=== PATIENT | male | born 1980 | race Caucasian/White ===

== ENCOUNTER 2016-10-29 12:52 | Emergency (ER) | payer OTHER ==
[~2016-10-29] VITALS: Ht 182.9 cm; Wt 52.2 kg
[2016-10-29 13:08] VITALS: BP_SYST 148
[2016-10-29] MEDS ORDERED: SUMAtriptan SUCCINATE 6 MG/0.5 ML VIAL SUBCUT ONE (13:15)
[2016-10-29] MEDS ORDERED: DEXAMETHASONE SOD PHOSPHATE 10 MG/ML VIAL IVP ONE (13:15)
[2016-10-29] MEDS ORDERED: NS 500 ML IV ONE (13:15)
[2016-10-29] MEDS ORDERED: MORPHINE 4 MG/ML INJ. SYRINGE IVP ONE (13:15)
[2016-10-29] MEDS ORDERED: KETOROLAC TROMETHAMINE 30 MG VIAL IVP ONE (13:15)
[2016-10-29] MEDS ORDERED: DIPHENHYDRAMINE INJ 50 MG/ML VIAL IVP ONE (13:15)
[2016-10-29] MEDS ORDERED: ONDANSETRON HCL 4 MG/2 ML VIAL IVP ONE (13:30)
[2016-10-29 14:22] VITALS: BP_SYST 150
== END 2016-10-29 14:21 | disposition home or self-care (01) ==
LOC: SED 12:52
DX: G43.909 Migraine, unspecified, not intractable, without status migrainosus (principal); Z88.8 Allergy status to other drugs, medicaments and biological substances
CPT/HCPCS: 96361; 96374; 96375; 99284; J1100; J1200; J1885; J2270; J2405; J7040; J3030

== ENCOUNTER 2017-02-25 07:16 | Emergency (ER) | payer OTHER, MEDICAID ==
[~2017-02-25] VITALS: Ht 182.9 cm; Wt 52.2 kg
[2017-02-25 07:23] VITALS: BP_SYST 152
[2017-02-25] MEDS ORDERED: ONDANSETRON 4 MG ODT TAB PO ONE (07:45)
[2017-02-25] MEDS ORDERED: MORPHINE SULFATE 10 MG/ML VIAL IM ONE (07:45)
[2017-02-25 09:23] VITALS: BP_SYST 144
== END 2017-02-25 09:21 | disposition home or self-care (01) ==
LOC: SED 07:16
DX: G43.909 Migraine, unspecified, not intractable, without status migrainosus (principal); J45.909 Unspecified asthma, uncomplicated; I10 Essential (primary) hypertension; Z88.8 Allergy status to other drugs, medicaments and biological substances
CPT/HCPCS: 96372; 99283; J2270; Q0162

== ENCOUNTER 2017-03-01 05:20 | Emergency (ER) | payer OTHER, MEDICAID ==
[~2017-03-01] VITALS: Ht 182.9 cm; Wt 52.2 kg
[2017-03-01 05:20] VITALS: BP_SYST 152
[2017-03-01] MEDS ORDERED: WARF6TAB20 PO (05:42)
[2017-03-01] MEDS ORDERED: MORPHINE 4 MG/ML INJ. SYRINGE IVP ONE (05:45)
[2017-03-01] MEDS ORDERED: DIPHENHYDRAMINE INJ 50 MG/ML VIAL IVP ONE (05:45)
[2017-03-01] MEDS ORDERED: ONDANSETRON HCL 4 MG/2 ML VIAL IVP ONE (05:45)
[2017-03-01] MEDS ORDERED: NACL 0.9% 1,000 ML IV ONE (05:45)
[2017-03-01 06:21] LABS: BASOPHILS % (AUTO) 0.3 % (0.0-2.0); EOSINOPHILS % (AUTO) 0.5 % (0.0-4.0); HEMATOCRIT 44.3 % (36-54); HEMOGLOBIN 14.6 g/dL (14.0-18.0); LYMPHOCYTES # (AUTO) 0.8 K/uL (1.0-5.5); LYMPHOCYTES % (AUTO) 10.3 % (20.5-51.5); MEAN CORPUSCULAR HEMOGLOBIN 31 pg (27-31); MEAN CORPUSCULAR HGB CONC 33 % (32-36); MEAN CORPUSCULAR VOLUME 95 fL (79.0-98.0); MONOCYTES # (AUTO) 0.6 K/uL (0.0-1.0); MONOCYTES % (AUTO) 7.1 % (1.7-9.3); NEUTROPHILS # (AUTO) 6.7 K/uL (1.8-7.7); NEUTROPHILS % (AUTO) 81.8 % (40.0-70.0); PLATELET COUNT (AUTO) 223 K/uL (130-430); RED BLOOD CELL COUNT(AUTO) 4.64 MIL/uL (4.2-6.2); RED CELL DISTRIBUTION WIDTH 13.6 % (9.0-15.0); WHITE BLOOD COUNT (AUTO) 8.1 K/uL (4.8-10.8)
[2017-03-01 06:31] LABS: CALCIUM 9.6 mg/dL (8.4-11.0); CREATININE 0.73 mg/dL (0.55-1.30); INR 2.9 (0.80-1.20); POTASSIUM 3.7 mmol/L (3.5-5.1); PROTHROMBIN TIME 29.7 SECS (9.5-12.5)
[2017-03-01 06:36] LABS: ALBUMIN 3.9 g/dL (3.4-4.8); TOTAL BILIRUBIN 0.9 mg/dL (0.0-1.0)
[2017-03-01 07:02] VITALS: BP_SYST 134
== END 2017-03-01 07:02 | disposition home or self-care (01) ==
LOC: SED 05:20
DX: G43.909 Migraine, unspecified, not intractable, without status migrainosus (principal); I10 Essential (primary) hypertension; J45.909 Unspecified asthma, uncomplicated; Z88.8 Allergy status to other drugs, medicaments and biological substances
CPT/HCPCS: 36415; 80053; 85025; 85610; 85730; 96361; 96374; 96375; 99284; J1200; J2270; J2405; J7030

== ENCOUNTER 2017-03-20 19:19 | Inpatient (IN) | payer OTHER, MEDICAID ==
[~2017-03-20] VITALS: Ht 182.9 cm; Wt 51.7 kg
[~2017-03-20 19:19] MED LIST: WARF6TAB20 PO
[2017-03-20 19:26] VITALS: BP_SYST 132
[2017-03-20] MEDS ORDERED: ASPIRIN 325 MG TABLET PO ONE (19:45)
[2017-03-20] MEDS ORDERED: HYDROmorphone 1 MG INJ. 1 MG/ML AMPUL IVP ONE ×2 (19:45→21:15)
[2017-03-20] MEDS ORDERED: DIPHENHYDRAMINE INJ 50 MG/ML VIAL IVP ONE (19:45)
[2017-03-20 19:53] LABS: BASOPHILS % (AUTO) 0.7 % (0.0-2.0); EOSINOPHILS # (AUTO) 0.1 K/uL (0.0-0.4); EOSINOPHILS % (AUTO) 1.7 % (0.0-4.0); HEMATOCRIT 40.1 % (36-54); HEMOGLOBIN 13.4 g/dL (14.0-18.0); LYMPHOCYTES # (AUTO) 1.4 K/uL (1.0-5.5); LYMPHOCYTES % (AUTO) 19.8 % (20.5-51.5); MEAN CORPUSCULAR HEMOGLOBIN 32 pg (27-31); MEAN CORPUSCULAR HGB CONC 33 % (32-36); MEAN CORPUSCULAR VOLUME 95 fL (79.0-98.0); MONOCYTES # (AUTO) 0.8 K/uL (0.0-1.0); NEUTROPHILS # (AUTO) 4.7 K/uL (1.8-7.7); NEUTROPHILS % (AUTO) 65.8 % (40.0-70.0); PLATELET COUNT (AUTO) 179 K/uL (130-430); RED BLOOD CELL COUNT(AUTO) 4.21 MIL/uL (4.2-6.2); RED CELL DISTRIBUTION WIDTH 13.7 % (9.0-15.0)
[2017-03-20] MEDS ORDERED: ONDANSETRON 4 MG ODT TAB PO ONE (20:00)
[2017-03-20 20:06] LABS: CALCIUM 8.4 mg/dL (8.4-11.0); CREATININE 0.77 mg/dL (0.55-1.30); POTASSIUM 3.6 mmol/L (3.5-5.1)
[2017-03-20 20:11] LABS: ALBUMIN 3.7 g/dL (3.4-4.8); TOTAL BILIRUBIN 0.5 mg/dL (0.0-1.0)
[2017-03-20 20:25] LABS: PROTHROMBIN TIME 40.5 SECS (9.5-12.5)
[2017-03-20 20:26] LABS: INR 3.9 (0.80-1.20)
[2017-03-20 20:35] LABS: BILIRUBIN,URINE NEGATIVE (NEGATIVE); BLOOD, URINE NEGATIVE (NEGATIVE); CLARITY/URINE HAZY (CLEAR); COLOR,URINE YELLOW (YELLOW); GLUCOSE,URINE NEGATIVE (NEGATIVE); KETONES,URINE NEGATIVE (NEGATIVE); LEUKOCYTE ESTERASE ,URINE NEGATIVE (NEGATIVE); NITRITE, URINE NEGATIVE (NEGATIVE); PROTEIN URINE NEGATIVE (NEGATIVE)
[2017-03-20 20:42] LABS: BACTERIA,URINE None Seen /HPF (None Seen); RBC,URINE 0-3 /HPF (0-3); URINE AMORPHOUS PHOSPHATES 4+ /HPF (None Seen); WBC,URINE NONE SEEN /HPF (0-3)
[2017-03-20] MEDS ORDERED: DORZ10DR10 OP (20:52)
[2017-03-20] MEDS ORDERED: LABE200T28 PO (20:52)
[2017-03-20 21:01] LABS: BARBITURATE, URINE NEGATIVE (NEG <=200); BENZODIAZEPINE, URINE NEGATIVE (NEG <=150); CANNABINOID, URINE POSITIVE (NEG <=50); COCAINE, URINE NEGATIVE (NEG <=150); METHAMPHETAMINES SCREEN,URINE NEGATIVE (NEG <=500); OPIATE, URINE NEGATIVE (NEG <=100); PHENCYCLIDINE SCREEN,URINE NEGATIVE (NEG <=25); UR TRICYCLIC ANTIDEPRESSANTS NEGATIVE (NEG <=300); URINE AMPHETAMINE NEGATIVE (NEG <=500); URINE METHADONE NEGATIVE (NEG <=200); URINE OXYCODONE SCREEN NEGATIVE (NEG <=100); URINE PROPOXYPHENE SCREEN NEGATIVE (NEG <=300)
[2017-03-20 21:52] VITALS: BP_SYST 148
[2017-03-20] MEDS ORDERED: LORazepam 2 MG/ML VIAL IVP PRN (22:15)
[2017-03-20] MEDS ORDERED: DOCUSATE SODIUM 100 MG CAPSULE PO PRN (22:15)
[2017-03-20] MEDS ORDERED: ONDANSETRON HCL 4 MG/2 ML VIAL IVP PRN (22:15)
[2017-03-20] MEDS ORDERED: MUPIROCIN 2% TOPICAL OINTMENT 22 GM NS PRN (22:15)
[2017-03-20] MEDS ORDERED: ZOLPIDEM TARTRATE 5 MG TABLET PO PRN (22:15)
[2017-03-20] MEDS ORDERED: POTASSIUM CHLORIDE 20 MEQ TAB.PRT.SR PO PRN (22:15)
[2017-03-20] MEDS ORDERED: MAGNESIUM SULFATE 50 ML IV PRN (22:15)
[2017-03-20] MEDS ORDERED: MORPHINE 2 MG/ML INJ. SYRINGE IVP PRN ×2 (22:15)
[2017-03-20] MEDS ORDERED: ACETAMINOPHEN 325 MG TABLET PO PRN (22:15)
[2017-03-21] VITALS (7 sets, daily range): BP systolic 103–154
[2017-03-21] MEDS: HYDROmorphone 2 MG/ML VIAL IVP PRN ×2 (02:35→08:32)
[2017-03-21 06:35] LABS: BASOPHILS % (AUTO) 0.5 % (0.0-2.0); EOSINOPHILS # (AUTO) 0.1 K/uL (0.0-0.4); EOSINOPHILS % (AUTO) 0.9 % (0.0-4.0); HEMATOCRIT 41.1 % (36-54); HEMOGLOBIN 13.6 g/dL (14.0-18.0); LYMPHOCYTES # (AUTO) 0.9 K/uL (1.0-5.5); MEAN CORPUSCULAR HEMOGLOBIN 32 pg (27-31); MEAN CORPUSCULAR HGB CONC 33 % (32-36); MEAN CORPUSCULAR VOLUME 96 fL (79.0-98.0); MONOCYTES # (AUTO) 0.5 K/uL (0.0-1.0); NEUTROPHILS # (AUTO) 6.3 K/uL (1.8-7.7); NEUTROPHILS % (AUTO) 79.6 % (40.0-70.0); PLATELET COUNT (AUTO) 181 K/uL (130-430); RED BLOOD CELL COUNT(AUTO) 4.28 MIL/uL (4.2-6.2); RED CELL DISTRIBUTION WIDTH 14.1 % (9.0-15.0); WHITE BLOOD COUNT (AUTO) 7.8 K/uL (4.8-10.8)
[2017-03-21 08:25] LABS: CALCIUM 9.2 mg/dL (8.4-11.0); CREATININE 0.6 mg/dL (0.55-1.30); POTASSIUM 3.7 mmol/L (3.5-5.1)
[2017-03-21 08:56] LABS: INR 3.5 (0.80-1.20)
[2017-03-21 08:59] LABS: PROTHROMBIN TIME 35.9 SECS (9.5-12.5)
[2017-03-21] MEDS ORDERED: LABETALOL HCL 100 MG TABLET PO SCH ×2 (09:00→15:00)
[2017-03-21] MEDS ORDERED: DORZOLAMIDE HCL/TIMOLOL MAL. 10 ML EYE DROPS (COSOPT) OP SCH (09:00)
[2017-03-21] MEDS ORDERED: HYDROmorphone 2 MG/ML VIAL IVP PRN (09:30)
[2017-03-21] MEDS ORDERED: IOHEXOL 350 mgI/mL, 150 ML INFUS..BTL IV ONE (10:59)
[2017-03-21] MEDS ORDERED: niCARdipine 25 MG in D5W 240 ML IV PRN (12:45)
[2017-03-21] MEDS ORDERED: WARFARIN SODIUM 5 MG TABLET PO SCH (18:00)
== END 2017-03-21 15:03 | disposition short-term general hospital (02) | DRG 300 ==
LOC: SED 19:19 → STU 21:13 → SIC 03-21 13:20
PROVIDERS: ADMIT General Practice; ATTEND General Practice
DX: I71.2 Thoracic aortic aneurysm, without rupture (principal); F11.20 Opioid dependence, uncomplicated; Q87.40 Marfan syndrome, unspecified; G44.89 Other headache syndrome; I71.01 Dissection of thoracic aorta; T45.511A Poisoning by anticoagulants, accidental (unintentional), initial encounter; F12.20 Cannabis dependence, uncomplicated; I10 Essential (primary) hypertension; Z53.20 Procedure and treatment not carried out because of patient's decision for unspecified reasons; Z86.79 Personal history of other diseases of the circulatory system; Z95.0 Presence of cardiac pacemaker; Z95.2 Presence of prosthetic heart valve; Z88.8 Allergy status to other drugs, medicaments and biological substances; Z79.01 Long term (current) use of anticoagulants; Z79.899 Other long term (current) drug therapy; Y92.89 Other specified places as the place of occurrence of the external cause
CPT/HCPCS: 36415; 71250-TC; 71275; 74175; 80048; 80053; 80307; 81000-TC; 82550-TC; 83735-TC; 83880; 84484; 85025; 85610-TC; 85730-TC; 93005; 96374; 96375; 99285; J1170; J1200; J2270; J2405; J7060; Q0162; Q9967

== ENCOUNTER 2017-06-03 19:19 | Emergency (ER) | payer OTHER, MEDICAID ==
[~2017-06-03] VITALS: Ht 182.9 cm; Wt 47.6 kg
[~2017-06-03 19:19] MED LIST changes: +DORZ10DR10 OP; +LABE200T28 PO
[2017-06-03 19:20] VITALS: BP_SYST 107
--- NOTE | 2017-06-03 20:20 | NUR ---
Pt to ER bed 7 for evaluation.
--- NOTE | 2017-06-03 20:30 | NUR ---
Pt alert and oriented x4. Pt C/O of chronic migraine. Pain stated 02/13. Sensitivity to light, nausea with no vomiting. No signs of SOB or acute distress noted. Will continue to monitor.
--- NOTE | 2017-06-03 20:35 | NUR ---
ER MD HAYS AT BEDSIDE EXAMINING PATIENT.
[2017-06-03] MEDS: ONDANSETRON 4 MG ODT TAB PO ONE (20:41)
[2017-06-03] MEDS: fentaNYL CITRATE/PF 100 MCG/2 ML AMP IM ONE (20:42)
[2017-06-03] MEDS ORDERED: fentaNYL CITRATE/PF 100 MCG/2 ML AMP IVP ONE (21:00)
[2017-06-03] MEDS: DIPHENHYDRAMINE INJ 50 MG/ML VIAL IVP ONE ×2 (21:37→22:29)
[2017-06-03] MEDS: NACL 0.9% 1,000 ML IV ONE (21:38)
[2017-06-03] MEDS: MORPHINE 2 MG/ML INJ. SYRINGE IVP ONE (21:45)
[2017-06-03] MEDS ORDERED: MORPHINE 2 MG/ML INJ. SYRINGE ONE (22:20)
[2017-06-03] MEDS: MORPHINE 4 MG/ML INJ. SYRINGE IVP ONE (22:20)
[2017-06-03 22:45] VITALS: BP_SYST 107
--- NOTE | 2017-06-03 22:45 | NUR ---
Patient given written and verbal discharge instructions and verbalizes understanding. ER MD HAYS discussed with patient the results and treatment provided. Patient in stable condition. ID arm band removed. IV catheter removed intact and dressing applied, no active bleeding. Rx of morphine, zofran and benadryl given. Patient educated on pain management and to follow up with PMD. Pain Scale 2/10. Opportunity for questions provided and answered.
== END 2017-06-03 22:45 | disposition home or self-care (01) ==
LOC: SED 19:19
DX: G43.909 Migraine, unspecified, not intractable, without status migrainosus (principal); J45.909 Unspecified asthma, uncomplicated; I10 Essential (primary) hypertension; Z88.8 Allergy status to other drugs, medicaments and biological substances
CPT/HCPCS: 93005; 96361; 96372; 96374; 96375; 96376; 99284; J1200; J2270; J3010; J7030; Q0162

== ENCOUNTER 2017-10-11 05:47 | Emergency (ER) | payer OTHER, MEDICAID ==
[~2017-10-11] VITALS: Ht 177.8 cm; Wt 52.2 kg
[2017-10-11 06:18] VITALS: BP_SYST 138
[2017-10-11] MEDS ORDERED: SUMAtriptan SUCCINATE 6 MG/0.5 ML VIAL SUBCUT ONE (06:30)
[2017-10-11] MEDS ORDERED: DIPHENHYDRAMINE INJ 50 MG/ML VIAL IM ONE (06:30)
[2017-10-11] MEDS ORDERED: ONDANSETRON 4 MG ODT TAB PO ONE (06:30)
[2017-10-11] MEDS ORDERED: MORPHINE 4 MG/ML INJ. SYRINGE IM ONE (07:15)
[2017-10-11] MEDS ORDERED: ONDANSETRON HCL 4 MG/2 ML VIAL IM ONE (07:15)
[2017-10-11 07:27] VITALS: BP_SYST 130
== END 2017-10-11 07:27 | disposition home or self-care (01) ==
LOC: SED 05:47
DX: G43.909 Migraine, unspecified, not intractable, without status migrainosus (principal); J45.909 Unspecified asthma, uncomplicated; I10 Essential (primary) hypertension; Z86.79 Personal history of other diseases of the circulatory system; Z88.8 Allergy status to other drugs, medicaments and biological substances; Z79.899 Other long term (current) drug therapy
CPT/HCPCS: 96372; 99284; J1200; J2270; Q0162; J2405; J3030

== ENCOUNTER 2017-10-12 10:15 | Emergency (ER) | payer OTHER, MEDICAID ==
[~2017-10-12] VITALS: Ht 182.9 cm; Wt 68.0 kg
[2017-10-12 10:23] VITALS: BP_SYST 129
[2017-10-12] MEDS ORDERED: DIPHENHYDRAMINE INJ 50 MG/ML VIAL IVP ONE (11:45)
[2017-10-12] MEDS ORDERED: ONDANSETRON HCL 4 MG/2 ML VIAL IVP ONE (11:45)
[2017-10-12] MEDS ORDERED: MORPHINE 4 MG/ML INJ. SYRINGE IVP ONE (11:45)
[2017-10-12] MEDS ORDERED: NS 500 ML IV ONE (11:45)
[2017-10-12] MEDS ORDERED: ACETAMINOPHEN/CODEINE 300 MG-30 MG TABLET PO ONE (13:00)
== END 2017-10-12 13:25 | disposition left against medical advice (07) ==
LOC: SED 10:15
DX: G43.909 Migraine, unspecified, not intractable, without status migrainosus (principal); J45.909 Unspecified asthma, uncomplicated; I10 Essential (primary) hypertension; Z86.79 Personal history of other diseases of the circulatory system; Z88.8 Allergy status to other drugs, medicaments and biological substances; Z79.899 Other long term (current) drug therapy
CPT/HCPCS: 96361; 96374; 96375; 99284; J1200; J2270; J2405; J7040

== ENCOUNTER 2017-10-18 06:01 | Emergency (ER) | payer OTHER, MEDICAID ==
[~2017-10-18] VITALS: Ht 177.8 cm; Wt 54.4 kg
[2017-10-18 06:05] VITALS: BP_SYST 124
[2017-10-18] MEDS ORDERED: DIPHENHYDRAMINE INJ 50 MG/ML VIAL IVP ONE (06:15)
[2017-10-18] MEDS ORDERED: NACL 0.9% 1,000 ML IV ONE (06:15)
[2017-10-18] MEDS ORDERED: MORPHINE 4 MG/ML INJ. SYRINGE IVP ONE ×2 (06:15→07:30)
[2017-10-18] MEDS ORDERED: ONDANSETRON HCL 4 MG/2 ML VIAL IVP ONE (06:30)
[2017-10-18 08:45] VITALS: BP_SYST 118
== END 2017-10-18 08:47 | disposition home or self-care (01) ==
LOC: SED 06:01
DX: G43.909 Migraine, unspecified, not intractable, without status migrainosus (principal); J45.909 Unspecified asthma, uncomplicated; I10 Essential (primary) hypertension; Z86.79 Personal history of other diseases of the circulatory system; Z88.8 Allergy status to other drugs, medicaments and biological substances; Z79.899 Other long term (current) drug therapy
CPT/HCPCS: 96361; 96374; 96375; 96376; 99284; J1200; J2270; J2405; J7030

== ENCOUNTER 2017-10-19 06:29 | Emergency (ER) | payer OTHER, MEDICAID ==
[~2017-10-19] VITALS: Ht 182.9 cm; Wt 52.2 kg
[2017-10-19 06:38] VITALS: BP_SYST 128
[2017-10-19] MEDS ORDERED: ONDANSETRON 4 MG ODT TAB PO ONE (07:00)
[2017-10-19] MEDS ORDERED: MORPHINE 4 MG/ML INJ. SYRINGE IM ONE (07:00)
[2017-10-19] MEDS ORDERED: DIPHENHYDRAMINE INJ 50 MG/ML VIAL IM ONE (07:00)
[2017-10-19 07:58] VITALS: BP_SYST 142
== END 2017-10-19 07:58 | disposition home or self-care (01) ==
LOC: SED 06:29
DX: G43.909 Migraine, unspecified, not intractable, without status migrainosus (principal); I10 Essential (primary) hypertension; J45.909 Unspecified asthma, uncomplicated; Z79.899 Other long term (current) drug therapy; Z88.8 Allergy status to other drugs, medicaments and biological substances
CPT/HCPCS: 96372; 99284; J1200; J2270; Q0162

== ENCOUNTER 2017-11-13 22:34 | Emergency (ER) | payer OTHER, MEDICAID ==
[2017-11-13 22:45] VITALS: BP_SYST 120
[2017-11-13] MEDS ORDERED: NACL 0.9% 1,000 ML IV ONE (23:22)
[2017-11-13] MEDS ORDERED: MORPHINE 4 MG/ML INJ. SYRINGE IVP ONE (23:30)
[2017-11-13] MEDS ORDERED: ONDANSETRON HCL 4 MG/2 ML VIAL IVP ONE (23:30)
[2017-11-14 00:12] LABS: BASOPHILS % (AUTO) 0.6 % (0.0-2.0); EOSINOPHILS # (AUTO) 0.1 K/uL (0.0-0.4); EOSINOPHILS % (AUTO) 1.5 % (0.0-4.0); HEMOGLOBIN 13.3 g/dL (14.0-18.0); LYMPHOCYTES # (AUTO) 1.6 K/uL (1.0-5.5); LYMPHOCYTES % (AUTO) 20.3 % (20.5-51.5); MEAN CORPUSCULAR HEMOGLOBIN 27 pg (27-31); MEAN CORPUSCULAR HGB CONC 33 % (32-36); MEAN CORPUSCULAR VOLUME 84 fL (79.0-98.0); MONOCYTES # (AUTO) 0.8 K/uL (0.0-1.0); MONOCYTES % (AUTO) 10.7 % (1.7-9.3); NEUTROPHILS # (AUTO) 5.4 K/uL (1.8-7.7); NEUTROPHILS % (AUTO) 66.9 % (40.0-70.0); PLATELET COUNT (AUTO) 180 K/uL (130-430); RED BLOOD CELL COUNT(AUTO) 4.87 MIL/uL (4.2-6.2); RED CELL DISTRIBUTION WIDTH 16.6 % (9.0-15.0); WHITE BLOOD COUNT (AUTO) 7.9 K/uL (4.8-10.8)
[2017-11-14 00:20] LABS: CALCIUM 9.4 mg/dL (8.4-11.0); CREATININE 0.63 mg/dL (0.55-1.30); POTASSIUM 3.9 mmol/L (3.5-5.1)
[2017-11-14 00:26] LABS: ALBUMIN 3.7 g/dL (3.4-4.8); PROTHROMBIN TIME 20.1 SECS (9.5-12.5); TOTAL BILIRUBIN 0.5 mg/dL (0.0-1.0)
[2017-11-14] MEDS ORDERED: DIPHENHYDRAMINE INJ 50 MG/ML VIAL IVP ONE ×2 (01:00→02:00)
[2017-11-14] MEDS ORDERED: MORPHINE 4 MG/ML INJ. SYRINGE IVP ONE (02:00)
[2017-11-14 03:03] VITALS: BP_SYST 120
== END 2017-11-14 03:03 | disposition home or self-care (01) ==
LOC: SED 22:34
DX: G43.909 Migraine, unspecified, not intractable, without status migrainosus (principal); G89.29 Other chronic pain; J45.909 Unspecified asthma, uncomplicated; I10 Essential (primary) hypertension; Z88.8 Allergy status to other drugs, medicaments and biological substances; Z79.899 Other long term (current) drug therapy
CPT/HCPCS: 36415; 71045; 80053; 82150; 82550; 83690; 85025; 85610; 85730; 96374; 96375; 96376; 99285; J1200; J2270; J2405; J7030

== ENCOUNTER 2017-11-15 01:56 | Emergency (ER) | payer OTHER, MEDICAID ==
[~2017-11-15] VITALS: Ht 182.9 cm; Wt 52.2 kg
[2017-11-15 02:02] VITALS: BP_SYST 126
[2017-11-15] MEDS ORDERED: KETOROLAC TROMETHAMINE 30 MG VIAL IVP ONE (02:30)
[2017-11-15] MEDS ORDERED: ONDANSETRON HCL 4 MG/2 ML VIAL IVP ONE (02:30)
[2017-11-15] MEDS ORDERED: MORPHINE 4 MG/ML INJ. SYRINGE IVP ONE (02:45)
[2017-11-15 03:02] LABS: BASOPHILS % (AUTO) 0.4 % (0.0-2.0); EOSINOPHILS # (AUTO) 0.1 K/uL (0.0-0.4); EOSINOPHILS % (AUTO) 1.7 % (0.0-4.0); HEMATOCRIT 38.7 % (36-54); HEMOGLOBIN 12.4 g/dL (14.0-18.0); LYMPHOCYTES # (AUTO) 1.3 K/uL (1.0-5.5); LYMPHOCYTES % (AUTO) 15.2 % (20.5-51.5); MEAN CORPUSCULAR HEMOGLOBIN 27 pg (27-31); MEAN CORPUSCULAR HGB CONC 32 % (32-36); MEAN CORPUSCULAR VOLUME 84 fL (79.0-98.0); MONOCYTES # (AUTO) 0.7 K/uL (0.0-1.0); MONOCYTES % (AUTO) 8.3 % (1.7-9.3); NEUTROPHILS # (AUTO) 6.4 K/uL (1.8-7.7); NEUTROPHILS % (AUTO) 74.4 % (40.0-70.0); PLATELET COUNT (AUTO) 174 K/uL (130-430); RED CELL DISTRIBUTION WIDTH 17.5 % (9.0-15.0); WHITE BLOOD COUNT (AUTO) 8.5 K/uL (4.8-10.8)
[2017-11-15 03:06] LABS: CALCIUM 8.9 mg/dL (8.4-11.0); CREATININE 0.71 mg/dL (0.55-1.30)
[2017-11-15 03:11] LABS: INR 2.4 (0.80-1.20)
[2017-11-15 03:12] LABS: ALBUMIN 2.8 g/dL (3.4-4.8); TOTAL BILIRUBIN 0.5 mg/dL (0.0-1.0)
[2017-11-15 03:16] LABS: PROTHROMBIN TIME 24.9 SECS (9.5-12.5)
[2017-11-15 04:23] VITALS: BP_SYST 132
[2017-11-15 04:51] LABS: BILIRUBIN,URINE NEGATIVE (NEGATIVE); BLOOD, URINE NEGATIVE (NEGATIVE); CLARITY/URINE CLEAR (CLEAR); COLOR,URINE YELLOW (YELLOW); GLUCOSE,URINE NEGATIVE (NEGATIVE); KETONES,URINE NEGATIVE (NEGATIVE); LEUKOCYTE ESTERASE ,URINE NEGATIVE (NEGATIVE); NITRITE, URINE NEGATIVE (NEGATIVE); PROTEIN URINE NEGATIVE (NEGATIVE); UROBILINOGEN,URINE 0.2 (0.2-1.0)
== END 2017-11-15 04:23 | disposition home or self-care (01) ==
LOC: SED 01:56
DX: G44.229 Chronic tension-type headache, not intractable (principal); J45.909 Unspecified asthma, uncomplicated; I10 Essential (primary) hypertension; Z88.8 Allergy status to other drugs, medicaments and biological substances; Z79.899 Other long term (current) drug therapy
CPT/HCPCS: 36415; 70450; 80053; 81003; 85025; 85610; 85730; 96374; 96375; 99284; J1200; J1885; J2270; J2405; J7040; 96376

== ENCOUNTER 2017-11-15 08:16 | Emergency (ER) | payer OTHER, MEDICAID ==
[~2017-11-15] VITALS: Ht 182.9 cm; Wt 52.2 kg
[2017-11-15 08:28] VITALS: BP_SYST 158
[2017-11-15] MEDS ORDERED: ONDANSETRON HCL 4 MG/2 ML VIAL IVP ONE ×2 (08:30→10:00)
[2017-11-15] MEDS ORDERED: MORPHINE 4 MG/ML INJ. SYRINGE IVP ONE ×3 (08:30→11:15)
[2017-11-15] MEDS ORDERED: NS 500 ML IV ONE (08:30)
[2017-11-15] MEDS ORDERED: DIPHENHYDRAMINE INJ 50 MG/ML VIAL IVP ONE (08:30)
[2017-11-15] MEDS ORDERED: KETOROLAC TROMETHAMINE 15 MG VIAL IVP ONE (10:00)
[2017-11-15 11:20] VITALS: BP_SYST 115
== END 2017-11-15 11:20 | disposition home or self-care (01) ==
LOC: SED 08:16
DX: G43.909 Migraine, unspecified, not intractable, without status migrainosus (principal); J45.909 Unspecified asthma, uncomplicated; I10 Essential (primary) hypertension; Z88.8 Allergy status to other drugs, medicaments and biological substances; Z79.899 Other long term (current) drug therapy
CPT/HCPCS: 70450; 96374; 96375; 96376; 99284; J1200; J1885; J2270; J2405

== ENCOUNTER 2017-11-16 17:55 | Emergency (ER) | payer OTHER, MEDICAID ==
[~2017-11-16] VITALS: Ht 182.9 cm; Wt 52.2 kg
[2017-11-16 17:55] VITALS: BP_SYST 119
[2017-11-16] MEDS ORDERED: DIPHENHYDRAMINE INJ 50 MG/ML VIAL IVP ONE (18:15)
[2017-11-16] MEDS ORDERED: MORPHINE 4 MG/ML INJ. SYRINGE IVP ONE (18:15)
[2017-11-16] MEDS ORDERED: ONDANSETRON HCL 4 MG/2 ML VIAL IVP ONE (18:15)
[2017-11-16] MEDS ORDERED: NACL 0.9% 1,000 ML IV ONE (18:15)
[2017-11-16] MEDS ORDERED: fentaNYL CITRATE/PF 100 MCG/2 ML AMP IVP ONE (19:00)
[2017-11-16] MEDS ORDERED: MORPHINE 2 MG/ML INJ. SYRINGE IVP ONE (20:30)
[2017-11-16 20:40] VITALS: BP_SYST 125
== END 2017-11-16 20:40 | disposition home or self-care (01) ==
LOC: SED 17:55
DX: G43.919 Migraine, unspecified, intractable, without status migrainosus (principal); I10 Essential (primary) hypertension; J45.909 Unspecified asthma, uncomplicated; Z88.8 Allergy status to other drugs, medicaments and biological substances
CPT/HCPCS: 96374; 96375; 96376; 99284; J1200; J2270 ×2; J2405; J3010; J7030

== ENCOUNTER 2017-11-16 23:46 | Emergency (ER) | payer OTHER, MEDICAID ==
[~2017-11-16] VITALS: Ht 182.9 cm; Wt 52.2 kg
[2017-11-17 00:07] VITALS: BP_SYST 118
[2017-11-17] MEDS ORDERED: NACL 0.9% 1,000 ML IV ONE (02:48)
[2017-11-17] MEDS ORDERED: DIPHENHYDRAMINE INJ 50 MG/ML VIAL IVP ONE (03:00)
[2017-11-17] MEDS ORDERED: ONDANSETRON HCL 4 MG/2 ML VIAL IVP ONE (03:00)
[2017-11-17] MEDS ORDERED: MORPHINE 4 MG/ML INJ. SYRINGE IVP ONE (03:00)
[2017-11-17 03:12] LABS: BASOPHILS % (AUTO) 0.3 % (0.0-2.0); EOSINOPHILS % (AUTO) 0.2 % (0.0-4.0); HEMATOCRIT 38.7 % (36-54); HEMOGLOBIN 12.4 g/dL (14.0-18.0); LYMPHOCYTES # (AUTO) 0.9 K/uL (1.0-5.5); LYMPHOCYTES % (AUTO) 10.3 % (20.5-51.5); MEAN CORPUSCULAR HEMOGLOBIN 27 pg (27-31); MEAN CORPUSCULAR HGB CONC 32 % (32-36); MEAN CORPUSCULAR VOLUME 85 fL (79.0-98.0); MONOCYTES # (AUTO) 0.5 K/uL (0.0-1.0); MONOCYTES % (AUTO) 5.8 % (1.7-9.3); NEUTROPHILS % (AUTO) 83.4 % (40.0-70.0); PLATELET COUNT (AUTO) 163 K/uL (130-430); RED BLOOD CELL COUNT(AUTO) 4.58 MIL/uL (4.2-6.2); RED CELL DISTRIBUTION WIDTH 16.5 % (9.0-15.0); WHITE BLOOD COUNT (AUTO) 8.4 K/uL (4.8-10.8)
[2017-11-17 03:16] LABS: CALCIUM 9.2 mg/dL (8.4-11.0); CREATININE 0.76 mg/dL (0.55-1.30); POTASSIUM 3.5 mmol/L (3.5-5.1)
[2017-11-17 03:22] LABS: ALBUMIN 3.6 g/dL (3.4-4.8); TOTAL BILIRUBIN 0.7 mg/dL (0.0-1.0)
[2017-11-17 03:45] LABS: INR 2.8 (0.80-1.20)
[2017-11-17 03:48] LABS: PROTHROMBIN TIME 28.8 SECS (9.5-12.5)
[2017-11-17 04:46] VITALS: BP_SYST 120
== END 2017-11-17 04:46 | disposition home or self-care (01) ==
LOC: SED 23:46
DX: G43.819 Other migraine, intractable, without status migrainosus (principal); J45.909 Unspecified asthma, uncomplicated; I10 Essential (primary) hypertension; R79.1 Abnormal coagulation profile; Z88.8 Allergy status to other drugs, medicaments and biological substances; Z95.4 Presence of other heart-valve replacement; Z79.899 Other long term (current) drug therapy
CPT/HCPCS: 36415; 70450; 80053; 85025; 85610; 85730; 93005; 96374; 96375; 99285; J1200; J2270; J2405; J7030

== ENCOUNTER 2017-11-25 08:12 | Emergency (ER) | payer OTHER, MEDICAID ==
[~2017-11-25] VITALS: Ht 182.9 cm; Wt 49.9 kg
[2017-11-25 08:18] VITALS: BP_SYST 144
[2017-11-25] MEDS ORDERED: IPRATROPIUM BROM 0.5 MG/2.5 ML VIAL.NEB (ATROVENT) INH ONE (08:45)
[2017-11-25] MEDS ORDERED: ALBUTEROL SULFATE 0.083% 2.5 MG/3 ML VIAL.NEB INH ONE (08:45)
[2017-11-25] MEDS ORDERED: PREDNISONE 20 MG TABLET PO ONE (08:45)
[2017-11-25 09:10] VITALS: BP_SYST 144
== END 2017-11-25 09:10 | disposition home or self-care (01) ==
LOC: SED 08:12
DX: J45.901 Unspecified asthma with (acute) exacerbation (principal); I10 Essential (primary) hypertension; Z76.0 Encounter for issue of repeat prescription; Z95.0 Presence of cardiac pacemaker; Z88.8 Allergy status to other drugs, medicaments and biological substances; Z79.899 Other long term (current) drug therapy
CPT/HCPCS: 94640; 99283; J7512; J7613

== ENCOUNTER 2017-12-07 02:05 | Emergency (ER) | payer OTHER, MEDICAID ==
[~2017-12-07] VITALS: Ht 182.9 cm; Wt 49.9 kg
[2017-12-07 02:20] VITALS: BP_SYST 142
--- NOTE | 2017-12-07 02:20 | NUR ---
Patient to ER bed 4 to gown for evaluation. Side rails up. Report given to KYLAH ARNETT.
--- NOTE | 2017-12-07 02:25 | NUR ---
Pt brought himself into the ER in stable condition. Pt able to ambulate to Bed 4 with a steady gait. Pt c/o migraine w/ +N/V today. Pt denies medicating at home. -sob -chest pain. No acute distress noted at this time, will continue to monitor.
[2017-12-07] MEDS ORDERED: NACL 0.9% 1,000 ML IV ONE (02:28)
[2017-12-07] MEDS ORDERED: DIPHENHYDRAMINE INJ 50 MG/ML VIAL IVP ONE (02:30)
[2017-12-07] MEDS ORDERED: ONDANSETRON HCL 4 MG/2 ML VIAL IVP ONE (02:30)
[2017-12-07] MEDS ORDERED: MORPHINE 4 MG/ML INJ. SYRINGE IVP ONE ×2 (02:30→04:00)
--- NOTE | 2017-12-07 02:35 | NUR ---
ER at bedside examining patient.
[2017-12-07 02:58] LABS: BASOPHILS # (AUTO) 0.1 K/uL (0.0-0.2); BASOPHILS % (AUTO) 0.7 % (0.0-2.0); EOSINOPHILS # (AUTO) 0.2 K/uL (0.0-0.4); EOSINOPHILS % (AUTO) 2.7 % (0.0-4.0); HEMATOCRIT 40.4 % (36-54); LYMPHOCYTES # (AUTO) 1.5 K/uL (1.0-5.5); LYMPHOCYTES % (AUTO) 16.2 % (20.5-51.5); MEAN CORPUSCULAR HEMOGLOBIN 27 pg (27-31); MEAN CORPUSCULAR HGB CONC 32 % (32-36); MEAN CORPUSCULAR VOLUME 85 fL (79.0-98.0); MONOCYTES # (AUTO) 0.9 K/uL (0.0-1.0); MONOCYTES % (AUTO) 9.5 % (1.7-9.3); NEUTROPHILS # (AUTO) 6.5 K/uL (1.8-7.7); NEUTROPHILS % (AUTO) 70.9 % (40.0-70.0); PLATELET COUNT (AUTO) 177 K/uL (130-430); RED BLOOD CELL COUNT(AUTO) 4.75 MIL/uL (4.2-6.2); RED CELL DISTRIBUTION WIDTH 17.4 % (9.0-15.0); WHITE BLOOD COUNT (AUTO) 9.2 K/uL (4.8-10.8)
[2017-12-07 03:03] LABS: CALCIUM 9.1 mg/dL (8.4-11.0); CREATININE 0.67 mg/dL (0.55-1.30); POTASSIUM 3.7 mmol/L (3.5-5.1)
[2017-12-07 03:09] LABS: ALBUMIN 3.7 g/dL (3.4-4.8); TOTAL BILIRUBIN 0.7 mg/dL (0.0-1.0)
[2017-12-07] MEDS ORDERED: RACEPINEPHRINE HCL 0.5 ML VIAL.NEB IH ONE (05:00)
[2017-12-07 05:06] VITALS: BP_SYST 142
--- NOTE | 2017-12-07 05:06 | NUR ---
Patient given written and verbal discharge instructions and verbalizes understanding. ER MD SHARMA discussed with patient the results and treatment provided. Patient in stable condition. ID arm band removed. IV catheter removed intact and dressing applied, no active bleeding. Rx of ZOFRAN AND TYLENOL W/ CODEINE given. Patient educated on pain management and to follow up with PMD. Pain Scale 2/10. Opportunity for questions provided and answered. Medication side effect fact sheet provided.
== END 2017-12-07 05:06 | disposition home or self-care (01) ==
LOC: SED 02:05
DX: G43.909 Migraine, unspecified, not intractable, without status migrainosus (principal); J45.909 Unspecified asthma, uncomplicated; I10 Essential (primary) hypertension; Z95.0 Presence of cardiac pacemaker; Z88.8 Allergy status to other drugs, medicaments and biological substances; Z79.899 Other long term (current) drug therapy
CPT/HCPCS: 36415; 80053; 85025; 96361; 96374; 96375; 96376; 99284; J1200; J2270; J2405; J7030

== ENCOUNTER 2017-12-09 03:47 | Emergency (ER) | payer OTHER, MEDICAID ==
[~2017-12-09] VITALS: Ht 182.9 cm; Wt 52.2 kg
[2017-12-09 04:00] VITALS: BP_SYST 144
[2017-12-09] MEDS ORDERED: KETOROLAC TROMETHAMINE 60 MG/2 ML VIAL IM ONE (05:15)
[2017-12-09] MEDS ORDERED: DIPHENHYDRAMINE INJ 50 MG/ML VIAL IM ONE (05:15)
[2017-12-09] MEDS ORDERED: DIPHENHYDRAMINE INJ 50 MG/ML VIAL IVP ONE (05:30)
[2017-12-09 05:40] VITALS: BP_SYST 137
[2017-12-09] MEDS ORDERED: NORMAL SALINE 5 ML DISP.SYRIN IVF SCH (06:00)
== END 2017-12-09 05:40 | disposition home or self-care (01) ==
LOC: SED 03:47
DX: G43.909 Migraine, unspecified, not intractable, without status migrainosus (principal); J45.909 Unspecified asthma, uncomplicated; I10 Essential (primary) hypertension; Z88.8 Allergy status to other drugs, medicaments and biological substances
CPT/HCPCS: 96374; 99284; J1200; J1885

== ENCOUNTER 2017-12-17 03:50 | Emergency (ER) | payer OTHER, MEDICAID ==
[~2017-12-17] VITALS: Ht 182.9 cm; Wt 52.2 kg
[2017-12-17 03:52] VITALS: BP_SYST 136
--- NOTE | 2017-12-17 03:52 | NUR ---
Pt wheeled to bed 7 for evaluation
[2017-12-17] MEDS ORDERED: NACL 0.9% 1,000 ML IV ONE (04:00)
[2017-12-17] MEDS ORDERED: MORPHINE 4 MG/ML INJ. SYRINGE IVP ONE (04:00)
[2017-12-17] MEDS ORDERED: DIPHENHYDRAMINE INJ 50 MG/ML VIAL IVP ONE (04:00)
[2017-12-17] MEDS ORDERED: ONDANSETRON HCL 4 MG/2 ML VIAL IVP ONE (04:00)
[2017-12-17] MEDS ORDERED: FIORCET PO ONE (04:00)
--- NOTE | 2017-12-17 04:00 | NUR ---
Patient brought in wheelchair by self. Patient reports migraine headaches with auras starting at 1900 yesterday. Patient states that he thought it would get better but has now worsened. Patient reports 10/10 constant throbbing pain. Patient denies any vomiting but observed dry heaving at bedside. No other complaints/injuries per patient or as noted. Will continue to monitor.
--- NOTE | 2017-12-17 04:02 | NUR ---
ELO Arenas at bedside examining patient.
--- NOTE | 2017-12-17 04:02 | NUR ---
Carolyn lebron in [facility] - 12/17/17 at 0438 by [email or web address] ELO Springer at bedside examining patient.
--- NOTE | 2017-12-17 04:10 | NUR ---
Prior to administration of morphine, Patient states he will take "[employer]" home. informed that he will not be able to drive due to narcotics. Patient agreed to call taxi prior to discharge .
[2017-12-17] MEDS ORDERED: MORPHINE SULFATE 10 MG/ML VIAL ONE (04:13)
--- NOTE | 2017-12-17 04:18 | NUR ---
# 18 gauge angiocath placed to RAC. Use of asceptic technique. Opsite placed over site. Blood return noted. Flushed with 10 cc of normal saline. No evidence of infiltration noted. Patient tolerated well.
[2017-12-17 05:13] VITALS: BP_SYST 128
--- NOTE | 2017-12-17 05:13 | NUR ---
Patient given written and verbal discharge instructions and verbalizes understanding. ER MD discussed with patient the results and treatment provided. Patient in stable condition. ID arm band removed. IV catheter removed intact and dressing applied, no active bleeding. No rx given. Patient educated on pain management and to follow up with PMD in 2-3 days. Pain Scale 0/10 Opportunity for questions provided and answered. Addendum: 12/17/17 at 0526 by [email or web address] Patient placed in wheelchair and wheeled to taxi in stable condition. No distress noted.
== END 2017-12-17 05:13 | disposition home or self-care (01) ==
LOC: SED 03:50
DX: G43.909 Migraine, unspecified, not intractable, without status migrainosus (principal); J45.909 Unspecified asthma, uncomplicated; I10 Essential (primary) hypertension; Z88.8 Allergy status to other drugs, medicaments and biological substances; Z79.899 Other long term (current) drug therapy
CPT/HCPCS: 96374; 96375; 99284; J1200; J2270; J2405; J7030

== ENCOUNTER 2017-12-18 07:37 | Emergency (ER) | payer OTHER, MEDICAID ==
[~2017-12-18] VITALS: Ht 185.4 cm; Wt 56.7 kg
[2017-12-18 07:42] VITALS: BP_SYST 142
[2017-12-18] MEDS ORDERED: DIPHENHYDRAMINE INJ 50 MG/ML VIAL IM ONE (08:00)
[2017-12-18] MEDS ORDERED: MORPHINE SULFATE 10 MG/ML VIAL IM ONE (08:00)
[2017-12-18 09:17] VITALS: BP_SYST 125
== END 2017-12-18 09:21 | disposition home or self-care (01) ==
LOC: SED 07:37
DX: G43.909 Migraine, unspecified, not intractable, without status migrainosus (principal); J45.909 Unspecified asthma, uncomplicated; I10 Essential (primary) hypertension; Z88.8 Allergy status to other drugs, medicaments and biological substances; Z79.899 Other long term (current) drug therapy
CPT/HCPCS: 96372; 99284; J1200; J2270

== ENCOUNTER 2018-01-09 01:06 | Emergency (ER) | payer OTHER, MEDICAID ==
[~2018-01-09] VITALS: Ht 182.9 cm; Wt 49.9 kg
[2018-01-09 01:08] VITALS: BP_SYST 110
[2018-01-09] MEDS ORDERED: NACL 0.9% 1,000 ML IV ONE (03:11)
[2018-01-09] MEDS ORDERED: ONDANSETRON HCL 4 MG/2 ML VIAL IVP ONE (03:15)
[2018-01-09] MEDS ORDERED: DIPHENHYDRAMINE INJ 50 MG/ML VIAL IVP ONE (03:15)
[2018-01-09] MEDS ORDERED: MORPHINE 4 MG/ML INJ. SYRINGE IM ONE (03:15)
[2018-01-09 04:05] LABS: BASOPHILS % (AUTO) 0.3 % (0.0-2.0); EOSINOPHILS % (AUTO) 0.3 % (0.0-4.0); HEMATOCRIT 40.8 % (36-54); HEMOGLOBIN 13.4 g/dL (14.0-18.0); LYMPHOCYTES # (AUTO) 0.7 K/uL (1.0-5.5); LYMPHOCYTES % (AUTO) 9.4 % (20.5-51.5); MEAN CORPUSCULAR HEMOGLOBIN 28 pg (27-31); MEAN CORPUSCULAR HGB CONC 33 % (32-36); MEAN CORPUSCULAR VOLUME 86 fL (79.0-98.0); MONOCYTES # (AUTO) 0.5 K/uL (0.0-1.0); MONOCYTES % (AUTO) 6.7 % (1.7-9.3); NEUTROPHILS # (AUTO) 6.5 K/uL (1.8-7.7); NEUTROPHILS % (AUTO) 83.3 % (40.0-70.0); PLATELET COUNT (AUTO) 195 K/uL (130-430); RED BLOOD CELL COUNT(AUTO) 4.74 MIL/uL (4.2-6.2); RED CELL DISTRIBUTION WIDTH 17.6 % (9.0-15.0); WHITE BLOOD COUNT (AUTO) 7.7 K/uL (4.8-10.8)
[2018-01-09 04:20] LABS: CALCIUM 9.7 mg/dL (8.4-11.0); CREATININE 0.56 mg/dL (0.55-1.30); POTASSIUM 3.7 mmol/L (3.5-5.1)
[2018-01-09 04:35] LABS: TOTAL BILIRUBIN 1.1 mg/dL (0.0-1.0)
[2018-01-09 05:00] VITALS: BP_SYST 117
== END 2018-01-09 05:00 | disposition home or self-care (01) ==
LOC: SED 01:06
DX: G43.909 Migraine, unspecified, not intractable, without status migrainosus (principal); R11.2 Nausea with vomiting, unspecified; J45.909 Unspecified asthma, uncomplicated; I10 Essential (primary) hypertension; Z88.8 Allergy status to other drugs, medicaments and biological substances; Z79.899 Other long term (current) drug therapy
CPT/HCPCS: 36415; 80053; 85025; 93005; 96361; 96372; 96374; 96375; 99285; J1200; J2270; J2405; J7030

== ENCOUNTER 2018-01-25 01:21 | Emergency (ER) | payer OTHER, MEDICAID ==
[~2018-01-25] VITALS: Ht 182.9 cm; Wt 49.9 kg
[2018-01-25 01:29] VITALS: BP_SYST 144
[2018-01-25] MEDS ORDERED: MORPHINE 4 MG/ML INJ. SYRINGE IVP ONE (01:45)
[2018-01-25] MEDS ORDERED: ONDANSETRON HCL 4 MG/2 ML VIAL IVP ONE (01:45)
[2018-01-25] MEDS ORDERED: DIPHENHYDRAMINE INJ 50 MG/ML VIAL IVP ONE (01:45)
[2018-01-25 02:25] VITALS: BP_SYST 141
== END 2018-01-25 02:25 | disposition home or self-care (01) ==
LOC: SED 01:21
DX: G43.909 Migraine, unspecified, not intractable, without status migrainosus (principal); J45.909 Unspecified asthma, uncomplicated; I10 Essential (primary) hypertension; Z88.5 Allergy status to narcotic agent; Z88.8 Allergy status to other drugs, medicaments and biological substances
CPT/HCPCS: 96374; 96375; 99284; J1200; J2270; J2405

== ENCOUNTER 2018-02-03 10:21 | Emergency (ER) | payer OTHER, MEDICAID ==
[~2018-02-03] VITALS: Ht 182.9 cm; Wt 50.3 kg
[2018-02-03 10:31] VITALS: BP_SYST 145
[2018-02-03 11:07] VITALS: BP_SYST 145
[2018-02-03] MEDS ORDERED: MAGNESIUM SULFATE 50 ML IV ONE (11:15)
== END 2018-02-03 11:06 | disposition home or self-care (01) ==
LOC: SED 10:21
DX: G43.909 Migraine, unspecified, not intractable, without status migrainosus (principal); Z76.5 Malingerer [conscious simulation]; J45.909 Unspecified asthma, uncomplicated; I10 Essential (primary) hypertension; Z95.0 Presence of cardiac pacemaker; Z88.8 Allergy status to other drugs, medicaments and biological substances; Z79.899 Other long term (current) drug therapy
CPT/HCPCS: 99281

== ENCOUNTER 2018-02-08 00:37 | Emergency (ER) | payer OTHER, MEDICAID ==
[~2018-02-08] VITALS: Ht 177.8 cm; Wt 54.4 kg
[2018-02-08 00:51] VITALS: BP_SYST 142
[2018-02-08] MEDS ORDERED: ONDANSETRON HCL 4 MG/2 ML VIAL IVP ONE (02:00)
[2018-02-08] MEDS ORDERED: DIPHENHYDRAMINE INJ 50 MG/ML VIAL IVP ONE (02:00)
[2018-02-08 02:33] LABS: BASOPHILS # (AUTO) 0.1 K/uL (0.0-0.2); BASOPHILS % (AUTO) 1.3 % (0.0-2.0); EOSINOPHILS # (AUTO) 0.1 K/uL (0.0-0.4); EOSINOPHILS % (AUTO) 1.4 % (0.0-4.0); HEMATOCRIT 42.2 % (36-54); HEMOGLOBIN 13.4 g/dL (14.0-18.0); LYMPHOCYTES # (AUTO) 1.6 K/uL (1.0-5.5); LYMPHOCYTES % (AUTO) 18.3 % (20.5-51.5); MEAN CORPUSCULAR HEMOGLOBIN 28 pg (27-31); MEAN CORPUSCULAR HGB CONC 32 % (32-36); MEAN CORPUSCULAR VOLUME 88 fL (79.0-98.0); MONOCYTES # (AUTO) 0.8 K/uL (0.0-1.0); MONOCYTES % (AUTO) 9.3 % (1.7-9.3); NEUTROPHILS # (AUTO) 6.4 K/uL (1.8-7.7); NEUTROPHILS % (AUTO) 69.7 % (40.0-70.0); PLATELET COUNT (AUTO) 202 K/uL (130-430); RED BLOOD CELL COUNT(AUTO) 4.81 MIL/uL (4.2-6.2); RED CELL DISTRIBUTION WIDTH 17.7 % (9.0-15.0)
[2018-02-08 02:57] LABS: CALCIUM 9.3 mg/dL (8.4-11.0); CREATININE 0.69 mg/dL (0.55-1.30); POTASSIUM 3.6 mmol/L (3.5-5.1)
[2018-02-08 03:03] LABS: ALBUMIN 3.7 g/dL (3.4-4.8); TOTAL BILIRUBIN 0.5 mg/dL (0.0-1.0)
== END 2018-02-08 02:25 | disposition left against medical advice (07) ==
LOC: SED 00:37
DX: R51 Headache (principal); J45.909 Unspecified asthma, uncomplicated; I10 Essential (primary) hypertension; F17.200 Nicotine dependence, unspecified, uncomplicated; Z95.0 Presence of cardiac pacemaker; Z88.5 Allergy status to narcotic agent; Z88.8 Allergy status to other drugs, medicaments and biological substances
CPT/HCPCS: 36415; 80053; 85025; 96374; 96375; 99284; J1200; J2405

== ENCOUNTER 2018-02-21 07:29 | Emergency (ER) | payer OTHER, MEDICAID ==
[~2018-02-21] VITALS: Ht 182.9 cm; Wt 49.9 kg
[2018-02-21 07:42] VITALS: BP_SYST 130
[2018-02-21] MEDS ORDERED: KETAMINE 30 MG/3 ML SYRINGE 20 MG in NS 100 ML IV ONE (08:00)
[2018-02-21] MEDS ORDERED: ONDANSETRON HCL 4 MG/2 ML VIAL IVP ONE (08:00)
[2018-02-21] MEDS ORDERED: DIPHENHYDRAMINE INJ 50 MG/ML VIAL IVP ONE ×2 (08:00→09:30)
[2018-02-21] MEDS ORDERED: KETAMINE 30 MG/3 ML SYRINGE ONE (08:14)
== END 2018-02-21 09:40 | disposition home or self-care (01) ==
LOC: SED 07:29
DX: G43.909 Migraine, unspecified, not intractable, without status migrainosus (principal); J45.909 Unspecified asthma, uncomplicated; I10 Essential (primary) hypertension; Z88.8 Allergy status to other drugs, medicaments and biological substances; Z79.899 Other long term (current) drug therapy
CPT/HCPCS: 96374; 96375; 99284; J1200; J2405